=== PATIENT | male | born 1945 | race African-American/Black ===

== ENCOUNTER 2019-07-01 07:24 | Outpatient (CLI) | payer OTHER, SELFPAY ==
--- NOTE | ~2019-07-01 | XR_ITS ---
EXAMINATION: XR abdomen/kub 1V DATE: 07/01/2019 07:44 INDICATION: Left ureteral stone. TECHNIQUE: A supine view of the abdomen was obtained. COMPARISON: CT abdomen and pelvis 06/24/2019 FINDINGS: There are no dilated loops of bowel. There are stones in the bladder measuring up to 14 mm. There is a phlebolith in left pelvis. IMPRESSION: 1. Bladder stones. Reviewed, dictated and finalized at location A. ITE CONTROL SERVICER IMPRESSION: 1. Bladder stones.
== END 2019-07-01 07:25 | disposition home or self-care (01) ==
PROVIDERS: Visit Provider Urology
DX: N21.0 Calculus in bladder (principal)
CPT/HCPCS: 74018

== ENCOUNTER 2019-07-11 16:05 | Outpatient (CLI) | payer OTHER, SELFPAY ==
--- NOTE | ~2019-07-11 | CT_ITS ---
EXAMINATION: CT abdomen pelvis wo con DATE: 07/11/2019 16:57 INDICATION: Left ureteral stone TECHNIQUE: Computed tomography (CT) of the abdomen and pelvis was performed without intravenous contr ast. The dose-length product (DLP) was 222.74 mGy-cm. Automated exposure control and iterative recons truction technique were employed. COMPARISON: 06/24/2019 FINDINGS: Minimal dependent atelectasis is present in the lung bases. The heart size is normal. Punct ate calcifications in otherwise normal appearing liver and spleen likely represent healed granulomato us disease. The gallbladder is surgically absent. The pancreas and adrenal glands are normal. There h as been interval passage or treatment of the previously described left proximal ureteral stone. Left perinephric fat stranding has resolved. There is a 2 mm nonobstructing stone of the right kidney lowe r pole. There are multiple stones in the bladder. No pathologically enlarged abdominal or pelvic lymp h nodes are identified. There is no free intraperitoneal gas or evidence of bowel obstruction. Coloni c diverticulosis is present without evidence of diverticulitis. The appendix is normal. A moderate vo lume of colonic stool is present. IMPRESSION: 1. Interval treatment or passage of the previously described left proximal ureteral stone. 2. Multiple bladder stones. 3. Nonobstructing stone of the right kidney lower pole. Reviewed, dictated and finalized at location A. ING MACHINE OPERATOR IMPRESSION: 1. Interval treatment or passage of the previously described left proximal uret eral stone. 2. Multiple bladder stones. 3. Nonobstructing stone of the right kidney lower pole.
--- NOTE | ~2019-07-11 | XR_ITS ---
EXAMINATION: XR abdomen/kub 1V INDICATION: Left ureteral stone TECHNIQUE: Supine views of the abdomen were obtained on 2 radiographs. COMPARISON: 07/01/2019; CT, 06/24/[address] from today FINDINGS: There are multiple stones in the bladder. A phlebolith is noted in the left pelvis. Cholecy stectomy clips are present in the right upper quadrant. A moderate volume of colonic stool is present . The bowel gas pattern is normal. IMPRESSION: 1. Multiple bladder stones without additional urinary tract calculi seen. Reviewed, dictated and finalized at location A. EN TESTER
== END 2019-07-11 16:06 | disposition home or self-care (01) ==
PROVIDERS: Visit Provider Urology
DX: N21.0 Calculus in bladder (principal); N20.0 Calculus of kidney
CPT/HCPCS: 74018; 74176

== ENCOUNTER 2019-07-24 08:06 | Outpatient (CLI) | payer OTHER, SELFPAY | END 2019-07-24 08:07 | disposition home or self-care (01) | PROVIDERS: PCP Internal Medicine Infectious Disease; Visit Provider Urology | DX: Z01.812 Encounter for preprocedural laboratory examination (principal); N21.0 Calculus in bladder | CPT/HCPCS: 87086; 87088 ==

== ENCOUNTER 2019-07-30 00:38 | Day surgery (SDC) | payer OTHER, SELFPAY ==
[2019-07-23 13:06] VITALS: BMI 29.5
[2019-07-30] VITALS (11 sets, daily range): BP systolic 118–145; BP diastolic 76–94; PULSE 61–83; RESP 12–16; TEMP 36.6–36.8; O2SAT 96–100; BMI 29.5
--- NOTE | 2019-07-30 06:43 | P.PNAN_ITS ---
Anes - Initial Pre Proc Eval Procedure: Operation Date: 07/30/19 07:30 Proposed Procedures p Cystoscopy, Removal Of Bladder Stones - Chava Elias MD s Holmium Laser Procedure - Chava Elias MD Date/Time: 07/30/19 06:43 Surgeon: Chava Elias MD Pre Op Diagnosis: Bladder Stone Patient Data Age: 74 Gender: M Height: 1.75 m Weight: 90.72 kg Allergies Allergy/AdvReac Type Severity Reaction Status Date / Time No Known Allergies Allergy Verified 07/23/19 13:05 Home Medications Medication Instructions Recorded Confirmed Type hydrocodone-acetaminophen 1 tablet PO Q4H PRN #12 tablet 06/24/19 07/23/19 Rx ondansetron 4 mg PO Q6H PRN #10 tablet 06/24/19 07/23/19 Rx tamsulosin [Flomax] 0.4 mg PO DAILY #5 cap 06/24/19 07/23/19 Rx Patient hx anesthesia problems: none Family hx anesthesia problems: none [facility] Past Medical History Medical History (Updated 07/30/19 @ 06:44 by Mendez Jalloh MD) Kidney stones ANTHONY (obstructive sleep apnea) Social History Social History (Updated 06/24/19 @ 03:21 by John Yousif DO) Social History: Denies tobacco use Gender identity (if verbalized by the patient): Male Anes - Eval Final PreProcedure Day of Procedure 07/30/19 06:43 Patient weight: overweight Heart: regular rate and rhythm Lungs: clear to auscultation and normal air movement Airway: Mallampati scale class II Neurological: alert and oriented Last oral intake: >/= 8 hours ASA classification: II Emergent: no Anesthetic plan: proceed Anesthesia type and monitoring: general LMA Informed Consent: The patient's anesthetic plan and its attendant risks and benefits were discussed with the patient/family/POA. Questions were solicited and answers provided to the satisfaction of the patient/family/POA.
--- NOTE | 2019-07-30 06:46 | ECG_ITS ---
Measurements Intervals [place] Rate: 64 P: 40 [place]: 177 QRS: 3 QRSD: 86 T: 47 QT: 412 QTc: 427 Interpretive Statements SINUS RHYTHM BORDERLINE T WAVE ABNORMALITY- LATERAL LEADS BORDERLINE ECG Electronically Signed On 07-30-2019 8:52:05 SHALE MINER BLASTING by Erick Faulkner D.O.
[2019-07-30] MEDS: LACTATED RINGERS 1,000 ML 30 ML IV CONT ×2 (06:50→10:43)
--- NOTE | 2019-07-30 06:52 | PM.IMHP ---
H&P: HPI History of Present Illness Chief complaint: Bladder Stone Narrative: Larry Mcelroy is a 74 year old male found to have bladder calculi. Presents today for cystoscopy with holmium laser of stones and stone extraction. Review of Systems Review of Systems: All systems reviewed & are unremarkable except as noted in HPI and below PMFSH Past Medical History Medical History Kidney stones ANTHONY (obstructive sleep apnea) Social History Social History Social History: Denies tobacco use Gender identity (if verbalized by the patient): Male Meds Home Medications and Allergies Home Medications Medication Instructions Recorded Confirmed Type hydrocodone-acetaminophen 1 tablet PO Q4H PRN #12 tablet 06/24/19 07/23/19 Rx ondansetron 4 mg PO Q6H PRN #10 tablet 06/24/19 07/23/19 Rx tamsulosin [Flomax] 0.4 mg PO DAILY #5 cap 06/24/19 07/23/19 Rx Allergies Allergy/AdvReac Type Severity Reaction Status Date / Time No Known Allergies Allergy Verified 07/23/19 13:05 Exam Const: General: no acute distress HENMT: General nose exam: Normal nares present Eyes: General: appearance normal, both eyes and all related structures Resp: Effort & Inspection: normal respiratory effort Cardio: Rate: regular rate Rhythm: regular rhythm Assessment and Plan Assessment and plan (1) Bladder calculi: Code(s): N21.0 - Calculus in bladder Status: Acute Assessment and Plan: cystoscopy with holmium laser of bladder calculi.
[2019-07-30] MEDS: ceFAZolin 2 GM/D5W 50 ML 2 GM/50 ML BAG IVPB (07:24)
--- NOTE | 2019-07-30 07:41 | SUR.PREOP ---
cardiology arrived for EKG at 0650
[2019-07-30] MEDS: LIDOCAINE HCL 2% GEL UROJET 10 ML PKG MUCOUS MEM (07:43)
--- NOTE | 2019-07-30 08:06 | P.OP_ITS ---
Procedure Note - Detailed Date of procedure: 07/30/19 Pre-op diagnosis: Bladder Stone Multiple bladder stones-approximately 7 of them. Largest measuring 1 cm Post-op diagnosis: same Procedure performed: Cystoscopy with holmium laser of bladder calculi, bladder calculi extraction, fulguration of bladder neck. Description of procedure: Patient is taken to the operative suite and correctly identified. Once general anesthesia was obtained he was placed in a dorsal lithotomy position and prepped and draped in the usual sterile fashion. Twenty- two Turkish scope was inserted in the bladder in direct vision. He has an extremely enlarged prostate obstructive in nature with a median lobe. Upon entering the bladder approximately 7-8 stones are seen. The largest measures approximately 1 cm. We retrieve the smaller stones through the scope. Larger stone required holmium laser. The stones were then fragmented into multiple pieces and the fragments extracted. He did have some oozing at the bladder neck area at approximately the 4 and 5 o'clock position. This was fulgurated using a Bugbee electrode. There were no tumors noted. Given the size of the prostate with a slight oozing we placed an [address] It was inflated with 15 cc of sterile water. This is connected to continuous bladder irrigation. Will try and wean that often recovery room and discharged home with Mccord catheter. Will remove Mccord in the morning. Anesthesia: GLMA Surgeon: Chava Elias MD Drains: Yes Packing: No Pathology: yes Complications: No immediate complications Condition: stable Disposition: PACU
--- NOTE | 2019-07-30 09:15 | SUR.PHASEI ---
0910 FAMILY UPDATED IN THE WAITING ROOM.
== END 2019-07-30 11:14 | disposition home or self-care (01) ==
PROVIDERS: PCP Internal Medicine Infectious Disease; Visit Provider Urology
PROC: 0TCB8ZZ Extirpation of Matter from Bladder, Via Natural or Artificial Opening Endoscopic (ICD-10-PCS; CPT 52352; principal; 2019-07-30 07:30)
PROC: (CPT 52317; 2019-07-30 07:30)
DX: N21.0 Calculus in bladder (principal); G47.33 Obstructive sleep apnea (adult) (pediatric)
CPT/HCPCS: 52317; 52214; 82365; 88300; 93005; A9270; J0690; J1100; J2370; J2405; J2704; J3010; J7120

== ENCOUNTER 2020-09-20 16:39 | Inpatient (IN) | payer MEDICARE, OTHER, SELFPAY ==
--- NOTE | ~2020-09-20 | CT_ITS ---
EXAMINATION: CT abdomen pelvis wo con DATE: 09/20/2020 17:59 INDICATION: Rule out kidney stone. Flank pain. TECHNIQUE: Computed tomography (CT) of the abdomen and pelvis was performed without intravenous contr ast. The dose-length product was 212.21 mGy-cm. Automated exposure control and iterative reconstructi on technique were employed. COMPARISON: CT dated 07/11/2019. FINDINGS: There are dilated small bowel loops with possible transition in the left midabdomen. The di stal small bowel is decompressed. Findings compatible with partial small bowel obstruction. Enlarged prostate gland. There are punctate nonobstructing bilateral renal stones. No ureteral stones or hydro nephrosis. Colonic diverticulosis without evidence for diverticulitis. Lung bases unremarkable. The liver, spleen, pancreas, adrenal glands are unremarkable. Status post ch olecystectomy. IMPRESSION: 1. Small bowel obstruction. 2: Small nonobstructing bilateral renal stones. Reviewed, dictated and finalized at location A.
--- NOTE | ~2020-09-20 | XR_ITS ---
EXAMINATION: XR UGI water soluble w sbs EXAM DATE: 09/21/2020 11:54 INDICATION: Small bowel obstruction. TECHNIQUE: Lug Breaker And Wire Puller radiograph was acquired. Limited water-soluble upper GI examination and small bowel series was performed by radiologist Frederic Shay M.D. Pulsed dose reduction fluoroscopy was used with fluoroscopic time of 0.1. The DAP for this procedure was 46 Gycm2. A total of 17 images obtained f or the exam. Correlation is made to CT abdomen 09/20/2020. FINDINGS: Contrast was injected through nasogastric tube confirmed in position on bridge toll collector image. The st omach has a normal appearance without evidence of mass lesion, ulceration or filling defect. There i s normal rugal fold pattern. The duodenum and duodenal sweep are normal in appearance. Ileal and jejunal fold patterns are normal. Mildly dilated ileum, probably low-grade, partial small b owel obstruction. There is no small bowel wall thickening or mass effect displacing small bowel. The re are no intraluminal filling defects identified. Contrast reached the colon 2 hours. IMPRESSION: Mildly dilated ileum with transit time of 2 hours. Probably low-grade, partial obstructio n. Reviewed, dictated and finalized at location A. IMPRESSION: Mildly dilated ileum with transit time of 2 hours. Probably low-gra de, partial obstruction.
--- NOTE | ~2020-09-20 | XR_ITS ---
XR abdomen NG/feed tube insert INDICATION: Evaluate NG tube position. TECHNIQUE: Limited KUB perform for evaluating NG tube . COMPARISON: 07/11/2019 FINDINGS: NG tube tip in the stomach. Visualized bowel gas pattern is nonspecific.There are cholecys tectomy clips. IMPRESSION: 1: NG tube tip in the stomach. Reviewed, dictated and finalized at location A.
[2020-09-20 17:44] VITALS: BP 122/100; PULSE 72; RESP 16; TEMP 36.2; O2SAT 100
--- NOTE | 2020-09-20 18:40 | ED.GENADULT ---
HPI - General Adult General Chief complaint: Abdominal Pain Stated complaint: left flank pain Time Seen by Provider: 09/20/20 17:49 Source: patient Mode of arrival: ambulatory Limitations: no limitations History of Present Illness HPI narrative: Patient presents for evaluation of abdominal pain since 1000 this morning. He indicates the pain radiates from his left flank into his suprapubic region, ranging from 2-8 out of 10 in severity. He has had similar pain in the past with kidney stones. He had a CT abdomen pelvis in June 2019 that showed multiple bladder stones. He underwent cystoscopy with extraction of bladder calculi per Dr. Elias. Largest stone was 1 cm in size. He had prostate enlargement noted at that time. He denies any fever, chills, urinary symptoms. Reports some fecal urgency and had 2 bowel movements earlier today, both of which were soft. Normal bowel pattern is once every 3 days. He has experienced some nausea with one episode of vomiting. Surgical history positive for cholecystectomy, and umbilical/inguinal hernia repairs in addition to cystoscopy previously mentioned. He did eat cereal at approximately 0800 this morning. States he has had multiple colonoscopies in the past due to family history of colon cancer. Last colonoscopy was within the last 5 years and was normal per his reports. Related Data Home Medications Medication Instructions Recorded Confirmed No Home Medications 09/20/20 09/20/20 Allergies Allergy/AdvReac Type Severity Reaction Status Date / Time No Known Allergies Allergy Verified 09/20/20 17:52 Review of Systems Review of Systems: Narrative: CONSTITUTIONAL: Denies fever, chills, or sweats. EYES: Denies visual changes, redness, or discharge. ENT: Denies rhinorrhea, congestion, sore throat, or otalgia. CARDIOVASCULAR: Denies chest pain, palpitations, or edema. RESPIRATORY: Denies cough or dyspnea. GASTROINTESTINAL: Reports abdominal pain, nausea and vomiting. Denies diarrhea. GENITOURINARY: Denies dysuria or hematuria. SKIN: Denies rash or itching. MUSCULOSKELETAL: Denies back pain, joint pain, or myalgia. NEUROLOGIC: Denies headache, numbness, dizziness, or weakness. PSYCHIATRIC: Denies anxiety or depression. [facility] Past Medical History Medical History (Updated 09/20/20 @ 19:51 by Alexis Porter, [facility], ) Kidney stones ANTHONY (obstructive sleep apnea) Surgical History Surgical History History of cholecystectomy History of hernia repair Social History Social History Social History: Denies tobacco use Living arrangements: with family Additional occupation/education comments: physician Gender identity (if verbalized by the patient): Male Sexual Orientation (if Verbalized by the Patient): Straight or Heterosexual Spiritual care concerns: No Exam Narrative: Exam Narrative: GENERAL: Well-appearing, well-nourished, and in no acute distress. HEAD: Normocephalic, atraumatic. EYES: PERRLA and EOMI. ENT: Nares clear, no rhinorrhea or epistaxis. Mucous membranes moist. Oropharynx without tonsillar hypertrophy exudate or other lesions. Bilateral TMs pearly rogers nonbulging NECK: Supple. No adenopathy or masses. No carotid bruits or JVD CHEST: Clear to auscultation. No respiratory distress. No wheezes rales or rhonchi HEART: Regular rate and rhythm. No murmur heard. Normal peripheral pulses. ABDOMEN: Soft. Tender in suprapubic region. No CVA tenderness. No rebound or guarding. EXTREMITIES: Normal range of motion. No edema. SKIN: Warm, dry, no rash. NEURO: No focal deficits. Alert and oriented x3. PSYCH: Normal mood and affect. Course Course Emergency Course: This is a 75-year-old male who presents with abdominal pain since 10:00 this morning. Initial consideration was for kidney stone as current pain is consistent with the p
[2020-09-20 18:43] VITALS: BP 138/94; PULSE 64; RESP 14; O2SAT 100
[2020-09-20] MEDS: ONDANSETRON INJ 4 MG/2 ML VIAL IV PUSH (18:50)
[2020-09-20] MEDS: SODIUM CHLORIDE 0.9% IV 1,000 ML 100 ML IV CONT (18:50)
[2020-09-20] MEDS: MORPHINE SULFATE (*CRX) 2 MG/ML INJ IV PUSH (18:50)
[2020-09-20 19:00] VITALS: BP 146/95; PULSE 66; RESP 16; O2SAT 98
[2020-09-20 19:15] LABS: Basophils Percent Auto 0.3 % (0.2-1.2); Eosinophils Absolute Auto 0.1 K/mm3 (0-0.3); Eosinophils Percent Auto 2.2 % (0-4.4); Hematocrit 47.5 % (42.0-52.0); Hemoglobin 15.3 g/dL (14.0-18.0); Immature Granulocyte Absolute 0.03 K/mm3 (0.00-0.031); Immature Granulocyte Percent A 0.5 % (0-0.5); Lymphocytes Absolute Auto 1.66 K/mm3 (0.9-3.2); Lymphocytes Percent Auto 27.5 % (18.3-44.2); Mean Corpuscular HGB Conc 32.2 g/dl (32-36); Mean Corpuscular Hemoglobin 29.4 pg (26-34); Mean Corpuscular Volume 91.2 fl (80-100); Mean Platelet Volume 10.7 fl (7.4-10.4); Monocytes Absolute Auto 0.4 K/mm3 (0.1-0.6); Monocytes Percent Auto 6.8 % (2.6-8.5); Neutrophils Absolute Auto 3.8 K/mm3 (1.3-6.7); Neutrophils Percent Auto 62.7 % (45.5-73.1); Platelet Count Result 179 k/mm3 (150-375); Red Blood Count 5.21 M/mm3 (4.6-6.20); Red Cell Distribution Width 15.3 % (11.5-14.5)
[2020-09-20 19:27] LABS: Anion Gap 5 mmol/L (8-16); Blood Urea Nitrogen 18 mg/dL (9-20); Calcium 9.1 mg/dL (8.4-10.2); Carbon Dioxide 31 mmol/L (22-30); Chloride 105 mmol/L (98-107); Estimated CRCL calculation 59 ml/min; Estimated Glomerular Filt Rate > 60; Glucose 115 mg/dL (75-110); Potassium 4.2 mmol/L (3.4-5.0); Sodium 141 mmol/L (137-145)
[2020-09-20 19:28] LABS: Alanine Aminotransferase 29 U/L (4-50); Albumin Level 4.6 g/dL (3.5-5.1); Alkaline Phosphatase 85 U/L (38-126); Aspartate Amino Transferase 33 U/L (17-59); Bilirubin,Total 0.9 mg/dL (0.2-1.3); Lipase 63 U/L (23-300)
[2020-09-20 19:34] LABS: Prothrombin Time 13.6 Seconds (11.1-14.7)
[2020-09-20 19:35] LABS: Partial Thromboplastin Time 37.7 SECONDS (22.3-36.8)
--- NOTE | 2020-09-20 19:50 | PC.NURSE ---
DR TERRELL HOSPITALIST AT BEDSIDE FOR EVAL.
[2020-09-20 20:00] VITALS: BP 150/85; PULSE 81; RESP 16; O2SAT 97
--- NOTE | 2020-09-20 20:22 | PM.IMHP ---
H&P: HPI History of Present Illness Date/Time: 09/20/20 20:22 Chief Complaint: Abdominal pain++ Narrative: This is a pleasant 75 year old male with known history of previous renal stones x5 who presented to the hospital today with a complaint of left flank and LLQ abdominal pain that started at 1 am. The patient believed that he had another renal stone as his pain radiated towards his pelvis and was associated with an urge to defecate. Associated symptoms included nausea and nonbloody vomiting. The patient denies any fever, chills, cough, chest pain, dysuria, or hematuria. The patient had a couple of bowel movements today but then had the urge to defecate in the late afternoon although he could not have a bowel movement. The patient does believe that his abdomen is distended. The patient has had a cholecytectomy, umbilical hernia repair, and bilateral inguinal hernia repairs. CT abd/pelvis was obtained which demonstrated a partial bowel obstruction. The patient has no previous history of bowel obstructions. His last colonoscopy was about 5 years ago and was normal. General surgery was consulted by ER provider. We were asked to admit the patient to the hospital for further care. Review of Systems Review of Systems: All systems reviewed & are unremarkable except as noted in HPI and below PMFSH Past Medical History Medical History Kidney stones ANTHONY (obstructive sleep apnea) Surgical History Surgical History History of cholecystectomy History of hernia repair Social History Social History Social History: Denies tobacco use Smoking status: Never smoker Alcohol intake: never Substance use: never Living arrangements: with family Additional occupation/education comments: physician Gender identity (if verbalized by the patient): Male Sexual Orientation (if Verbalized by the Patient): Straight or Heterosexual Spiritual care concerns: No Comments Family medical history is reviewed and noncontributory. Meds Home Medications and Allergies Home Medications Medication Instructions Recorded Confirmed Type No Home Medications 09/20/20 09/20/20 History Allergies Allergy/AdvReac Type Severity Reaction Status Date / Time No Known Allergies Allergy Verified 09/20/20 17:52 Vital Signs Vital Signs - 24 hr 09/20/20 17:44 09/20/20 18:43 Temperature 36.2 C L Pulse Rate 72 64 Respiratory Rate 16 14 Blood Pressure 122/100 H 138/94 H Pulse Oximetry 100 100 Exam Const: General: cooperative, alert and awake Nutritional Appearance: well nourished Orientation/consciousness: patient oriented x3 HENMT: Head: normal to inspection General nose exam: Normal external nose present Face and sinus: normal facial exam Mouth: Yes Normal oral and palatal mucosa present and Yes oropharynx normal Eyes: Pupils: Equal, round and reactive pupils present EOM: EOMs intact bilaterally Neck: Neck: supple and no JVD Thyroid: thyroid normal Lymphatic: lymphadenopathy not noted Resp: Effort & Inspection: normal respiratory effort Auscultation: clear to auscultation bilaterally Cardio: Rate: regular rate Rhythm: regular rhythm Heart sounds: no murmurs GI: Inspection: distended GI Palp: Yes abdominal tenderness (Diffuse w/ palpation++ ), No Guarding due to palpation present (GI) and No Rigid due to palpation Auscultation: Hypoactive bowel sounds present Rectal Exam: deferred Skin: General skin exam: normal color and no rashes or lesions noted Neuro: General: patient oriented x3 Cranial nerves: Yes CN's II-XII intact bilaterally and Yes Equal, round and reactive pupils present Speech: normal speech Motor exam (neuro): 5/5 motor strength present throughout Sensory Exam: normal sensation Extrem: General: normal to inspection and no jason
[2020-09-20 20:43] LABS: Add Urine Microscopic? YES; Appearance Urine Cloudy (Clear); Bacteria Urine Trace /hpf; Bilirubin Urine Negative (Negative); Blood Urine Negative (Negative); Color Urine Yellow (Yellow); Glucose Urine UA Negative (Negative); Ketones Urine Negative (Negative); Leukocyte Esterase Ur Negative LEU/UL (Negative); Mucus Urine Rare /lpf; Nitrate Urine Negative (Negative); Protein Urine 1+ mg/dL (Negative); Specific Grav Ur 1.029 (1.001-1.035); Squamous Epithelial Cell Urine Rare /hpf (Few); WBC Urine 0-3 /hpf
[2020-09-20 21:32] VITALS: BP 130/86; PULSE 86; RESP 16; O2SAT 98
[2020-09-20 22:30] VITALS: BP 106/82; PULSE 80; RESP 20; TEMP 36.6; O2SAT 98; BMI 29.9
[2020-09-20] MEDS: PHENOL/SOD PHENO SPRAY CHERRY (*BKC) 1 SPRAY MUCOUS MEM (22:35)
--- NOTE | 2020-09-20 22:36 | ADMGEN ---
This patient, Larry Mcelroy, was admitted to Medical Room 244-. Patient/family oriented to hospital policies and general routines including ID bracelet, bed and alarms, visiting hours, pain management, procedures, bathroom and other care routines, personal items, smoking policy, room service/diet, and visiting hours. Information on how to activate the Rapid Response Team has been discussed. Patient/Family are encouraged to report perceived risks to care and to ask questions if they do not understand what they are told or what they should do.
[2020-09-21] VITALS (7 sets, daily range): BP systolic 121–153; BP diastolic 74–92; PULSE 62–78; RESP 16–22; TEMP 36.3–36.8; O2SAT 96–99
[2020-09-21] MEDS: SODIUM CHLORIDE 0.9% IV 1,000 ML 100 ML IV CONT ×2 (01:56→12:45)
[2020-09-21] MEDS: IBUPROFEN IV 400 MG in SODIUM CHLORIDE 0.9% IV 100 ML 200 MG IVPB ×2 (02:11→09:17)
[2020-09-21 05:40] LABS: Basophils Percent Auto 0.3 % (0.2-1.2); Eosinophils Absolute Auto 0.1 K/mm3 (0-0.3); Eosinophils Percent Auto 1.4 % (0-4.4); Hematocrit 39.8 % (42.0-52.0); Immature Granulocyte Absolute 0.03 K/mm3 (0.00-0.031); Immature Granulocyte Percent A 0.5 % (0-0.5); Lymphocytes Absolute Auto 2.07 K/mm3 (0.9-3.2); Lymphocytes Percent Auto 32.8 % (18.3-44.2); Mean Corpuscular HGB Conc 32.7 g/dl (32-36); Mean Corpuscular Hemoglobin 29.5 pg (26-34); Mean Corpuscular Volume 90.2 fl (80-100); Mean Platelet Volume 10.9 fl (7.4-10.4); Monocytes Absolute Auto 0.5 K/mm3 (0.1-0.6); Monocytes Percent Auto 8.4 % (2.6-8.5); Neutrophils Absolute Auto 3.6 K/mm3 (1.3-6.7); Neutrophils Percent Auto 56.6 % (45.5-73.1); Platelet Count Result 183 k/mm3 (150-375); Red Blood Count 4.41 M/mm3 (4.6-6.20); Red Cell Distribution Width 15.2 % (11.5-14.5); White Blood Count 6.3 K/mm3 (4.5-10.0)
[2020-09-21 05:54] LABS: Anion Gap 3 mmol/L (8-16); Blood Urea Nitrogen 16 mg/dL (9-20); Calcium 7.9 mg/dL (8.4-10.2); Carbon Dioxide 27 mmol/L (22-30); Chloride 110 mmol/L (98-107); Estimated CRCL calculation 67 ml/min; Estimated Glomerular Filt Rate > 60; Glucose 120 mg/dL (75-110); Potassium 3.9 mmol/L (3.4-5.0); Sodium 140 mmol/L (137-145)
[2020-09-21] MEDS: PANTOPRAZOLE SODIUM IV 40 MG VIAL IV PUSH (08:34)
--- NOTE | 2020-09-21 09:24 | PC.NURSE ---
To radiology via stretcher.
--- NOTE | 2020-09-21 11:36 | PM.CNGS ---
Assessment and Plan Assessment and plan (1) Partial small bowel obstruction: Code(s): K56.600 - Partial intestinal obstruction, unspecified as to cause Status: Acute Assessment and Plan: CT scan reviewed and suggests a partial small bowel obstruction. He does have a history of previous abdominal surgeries, but these are not surgeries you would necessarily expect a significant amount of intra-abdominal adhesions. Although, this could still be a cause. After speaking with the patient, he had a large intake of nuts prior to the onset of symptoms, which raises suspicion for this being more related to a food bolus rather than obstruction secondary to adhesions. Either way, NG tube was placed and he was made NPO. After seen by Dr. Vazquez this morning, he was showing some signs of clinical improvement. Gastrografin small bowel follow through was ordered today and showed mildly dilated ileum with transit time of 2 hours to the colon. No high grade small bowel obstruction. He is now moving his bowels and his abdominal exam is benign. I will remove his NG tube and allow full liquids. Will slowly advance his diet and re-examine the patient tomorrow morning. Hopefully, he continues to improve and could potentially be discharged home tomorrow. Thank you for allowing us to see the patient in consultation and we will continue to follow along with you. (2) ANTHONY (obstructive sleep apnea): Code(s): G47.33 - Obstructive sleep apnea (adult) (pediatric) Status: Acute Assessment and Plan: Compliant with CPAP. Continue use while inpatient. Additional Plan I have discussed the patient's case and plan of care with Dr. Vazquez. History of Present Illness Consult details Consult date: 09/21/20 Reason for consult: other (Partial small bowel obstruction) Requesting physician: Alexis Porter, LOG BUYER, Narrative: This is a 75-year-old male with a known history of renal stones, who presented to the emergency department with complaints of left flank and left lower quadrant abdominal pain. He reports eating a large volume of nuts in a sitting on Monday. Monday morning around 10:00, he developed left flank pain that radiated to his pelvis. He also had associated bloating, nausea, vomiting, and the urge to defecate. Prior to his symptoms, his bowels were moving normally. The pain was similar to the pain he has experienced in the past with kidney stones, but states it was consistent pain rather than intermittent. Yesterday, his pain was persistent, therefore he presented to the ER for evaluation. CT scan of the abdomen and pelvis showed dilated small bowel with a possible transition point in the left mid abdomen, suggesting a partial small bowel obstruction. Labs were unremarkable. The patient was admitted to the hospitalist service. An NG tube was placed and he was made NPO. Our service was consulted for the partial small bowel obstruction. The patient is now seen on medical floor. He had a Gastrografin small bowel follow through earlier this morning, and since the study he has had multiple bowel movements. He denies any nausea or abdominal pain at this time. The patients previous abdominal surgeries includes an umbilical hernia repair, bilateral inguinal hernia repair, and laparoscopic cholecystectomy. Denies a history of small bowel obstruction in the past. Review of Systems Review of Systems: All systems reviewed & are unremarkable except as noted in HPI and below Constitutional: Constitutional: Reports as per HPI, Denies chills, Denies fatigue and Denies fever(s) ENT: Reports system reviewed and no additional complaints, except as documented, Reports Normal hearing present and Denies dizziness Cardiovascular: Cardiovascular: Reports no additional cardiovascular complaints, Denies chest pain, Denies leg edema and Denies dyspnea Respiratory: Respiratory: Reports no additional respiratory complaints, Denies cough and Denies dyspnea Gastro
--- NOTE | 2020-09-21 16:48 | PM.IMPN ---
Progress Note: A&P Assessment and Plan (1) Partial small bowel obstruction: Code(s): K56.600 - Partial intestinal obstruction, unspecified as to cause Status: Acute Assessment and Plan: Patient presented with acute onset LLQ abdominal pain. CT demonstrated small bowel obstruction. He was evaluated by general surgery, Dr Vazquez and Rocio AUTO APPRAIS[facility]. NG was placed to low intermittent suction, NPO/bowel rest overnight last night. Upper GI series this morning showed mildly dilated ileum consistent with low-grade partial obstruction. NG removed. He has now had multiple BMs, tolerated full liquids so far without abdominal pain, nausea or vomiting. IV fluids discontinued. Agree that this may have been related to food bolus. Patient consumed a large amount of nuts in one sitting prior to arrival. He now endorses passing many nuts in his BMs. Other contributing etiology could be adhesions subsequent from prior abdominal surgeries: laparoscopic cholecystectomy, umbilical hernia repair, bilateral inguinal hernia repair. Anticipate advance diet in AM, likely discharge tomorrow. Appreciate General Surgery recommendations. 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 He is feeling well after surgery [facility] APPR[facility]IS[facility] removed NG tube this afternoon. He is having no abdominal pain, nausea or vomiting and has tolerated 1 tray of full liquids for lunch. Since his upper GI series this AM, he has passed multiple bowel movements. He describes eating a large amount of nuts yesterday and agrees with surgery that this may caused a food bolus, especially now that he is seeing a lot of nuts in his stool this afternoon. He is hopeful for discharge tomorrow. Review of Systems Review of Systems: All systems reviewed & are unremarkable except as noted in HPI and below Exam Narrative: Exam Narrative: General: Male ambulating independently in the room in no acute distress. HEENT: Normocephalic, EOMI. Cardiovascular: Rate and rhythm are regular. Respiratory: Lungs clear to auscultation bilaterally. Respirations even and non-labored. Tolerating room air. Abdomen: Soft, non-distended, bowel sounds present. Nontender to palpation. Extremities: Peripheral pulses intact. No edema. Neuro: No focal neurological deficits. Speech is clear. Objective Data Vital Signs Vital Signs: Last Vital Signs Temp 97.5 F L 09/21/20 14:00 Pulse 70 09/21/20 14:00 Resp 22 H 09/21/20 14:00 BP 125/75 09/21/20 14:00 Pulse Ox 98 09/21/20 14:00 Intake/Output Intake/Output: Intake & Output 09/18/20 09/19/20 09/20/20 09/21/20 23:59 23:59 23:59 23:59 Intake Total 1000 1408 Output Total 600 Balance 1000 808 Meds/Results Medications: Active Medications Generic Name Dose Route Start Last Admin Trade Name Freq PRN Reason Stop Dose Admin Ibuprofen 400 mg/ Sodium 104 mls @ 200 mls/hr 09/21/20 00:30 09/21/20 09:50 Chloride IVPB Infused Q6H PRN Infusion Pain Rated 4-6 Morphine Sulfate 2 mg 09/20/20 19:44 Morphine Sulfate (*Crx) 4 Mg/Ml Inj IV PUSH Q2H PRN Pain Rated 7-10 Ondansetron HCl 4 mg 09/20/20 19:44 Ondansetron Inj 4 Mg/2 Ml Vial IV PUSH Q4H PRN Nausea Pantoprazole Sodium 40 mg 09/21/20 09:00 09/21/20 08:34 Pantoprazole Sodium Iv 40 Mg Vial IV PUSH 40 mg QAM BROCK Administration Phenol 1 spray 09/20/20 22:13 09/20/20 22:35 Phenol/Sod Pheno [place] Arnold (*Bkc) MUCOUS MEM 1 spray PRN PRN Administration Sore Throat Radiology Results: ITS Impressions Abdomen/Pelvis CT 09/20/20 18:00 IMPRESSION: 1. Small bowel obstruction. 2: Small nonobstructing bilateral renal stones. Abdomen X-Ray 09/20/20 20:40 IMPRESSION: 1: NG tube tip in the stomach. Upper GI Series 09/21/20 11:56 IMPRESSION: Mildly dilated ileum with transit time of 2 hours. Probabl
--- NOTE | 2020-09-21 22:02 | PCRCNOTE ---
Asked pt if he would like a cpap machine to wear he refused at this time due to covid. I explained he could have his family bring his up too if he would like.
[2020-09-22 05:32] LABS: Basophils Percent Auto 0.4 % (0.2-1.2); Eosinophils Absolute Auto 0.2 K/mm3 (0-0.3); Eosinophils Percent Auto 4.2 % (0-4.4); Hematocrit 40.2 % (42.0-52.0); Hemoglobin 12.9 g/dL (14.0-18.0); Immature Granulocyte Absolute 0.04 K/mm3 (0.00-0.031); Immature Granulocyte Percent A 0.8 % (0-0.5); Lymphocytes Absolute Auto 2.03 K/mm3 (0.9-3.2); Lymphocytes Percent Auto 40.4 % (18.3-44.2); Mean Corpuscular HGB Conc 32.1 g/dl (32-36); Mean Corpuscular Hemoglobin 29.7 pg (26-34); Mean Corpuscular Volume 92.4 fl (80-100); Mean Platelet Volume 10.6 fl (7.4-10.4); Monocytes Absolute Auto 0.6 K/mm3 (0.1-0.6); Neutrophils Absolute Auto 2.1 K/mm3 (1.3-6.7); Neutrophils Percent Auto 42.2 % (45.5-73.1); Platelet Count Result 161 k/mm3 (150-375); Red Blood Count 4.35 M/mm3 (4.6-6.20); Red Cell Distribution Width 15.5 % (11.5-14.5)
[2020-09-22 05:41] LABS: Potassium 3.9 mmol/L (3.4-5.0)
[2020-09-22 05:42] LABS: Anion Gap 0 mmol/L (8-16); Blood Urea Nitrogen 13 mg/dL (9-20); Calcium 7.9 mg/dL (8.4-10.2); Carbon Dioxide 30 mmol/L (22-30); Chloride 110 mmol/L (98-107); Estimated CRCL calculation 67 ml/min; Estimated Glomerular Filt Rate > 60; Glucose 92 mg/dL (75-110); Magnesium 1.9 mg/dL (1.6-2.3); Sodium 140 mmol/L (137-145)
[2020-09-22 06:00] VITALS: BP 133/83; PULSE 62; RESP 16; TEMP 36.4; O2SAT 98
[2020-09-22 06:54] VITALS: O2SAT 93
[2020-09-22 08:00] VITALS: BP 124/75; PULSE 64; RESP 16; TEMP 35.8; O2SAT 97
--- NOTE | 2020-09-22 09:23 | PM.PNGS ---
Progress Note: A&P Assessment and Plan (1) Partial small bowel obstruction: Code(s): K56.600 - Partial intestinal obstruction, unspecified as to cause Status: Acute Assessment and Plan: appears to be resolved. Patient can be discharged this morning. Advised to keep high residue, high-fiber foods such as knots to moderate intake. I suspect the high intake of nuts was the cause of his obstruction. Okay to discharge from my standpoint. No surgical follow-up needed. Subjective Subjective Date/Time Seen: 09/22/20 09:23 Patient reports: no new complaints, feels better, pain is less ( No abdominal pain, no nausea, feels back to normal) and bowel movement Review of Systems Review of Systems: All systems reviewed & are unremarkable except as noted in HPI and below Constitutional: Constitutional: Denies headache(s) Gastrointestinal: Gastrointestinal: Reports as per HPI Neurologic: Denies confusion and Denies headache(s) Exam Const: General: comfortable and no acute distress; No confusion Orientation/consciousness: patient oriented x3 and No confusion Neuro: General: patient oriented x3, no focal motor deficits and No confusion Psych: Affect: normal affect Insight: Good insight present (Psych) Judgement: Good judgement present (Psych) Objective Data Vital Signs Vital Signs: Vital Signs - 24 hr 09/21/20 12:12 09/21/20 14:00 09/21/20 18:00 Temperature 36.3 C L 36.4 C L 36.6 C Pulse Rate 65 70 73 Respiratory Rate 16 22 H 16 Blood Pressure 153/92 H 125/75 132/74 Pulse Oximetry 98 98 98 09/21/20 22:00 09/22/20 06:00 09/22/20 06:54 Temperature 36.7 C 36.4 C Pulse Rate 62 62 Respiratory Rate 18 16 Blood Pressure 128/75 133/83 Pulse Oximetry 99 98 93 09/22/20 08:00 Temperature 35.8 C L Pulse Rate 64 Respiratory Rate 16 Blood Pressure 124/75 Pulse Oximetry 97 Intake/Output Intake/Output: Intake & Output 09/19/20 09/20/20 09/21/20 09/22/20 23:59 23:59 23:59 23:59 Intake Total 1000 1758 558 Output Total 600 Balance 1000 1158 558 Meds/Results Medications: Active Medications Generic Name Dose Route Start Last Admin Trade Name Freq PRN Reason Stop Dose Admin Ibuprofen 400 mg/ Sodium 104 mls @ 200 mls/hr 09/21/20 00:30 09/21/20 09:50 Chloride IVPB Infused Q6H PRN Infusion Pain Rated 4-6 Morphine Sulfate 2 mg 09/20/20 19:44 Morphine Sulfate (*Crx) 4 Mg/Ml Inj IV PUSH Q2H PRN Pain Rated 7-10 Ondansetron HCl 4 mg 09/20/20 19:44 Ondansetron Inj 4 Mg/2 Ml Vial IV PUSH Q4H PRN Nausea Pantoprazole Sodium 40 mg 09/21/20 09:00 09/21/20 08:34 Pantoprazole Sodium Iv 40 Mg Vial IV PUSH 40 mg QAM BROCK Administration Phenol 1 spray 09/20/20 22:13 09/20/20 22:35 Phenol/Sod Pheno [place] Arnold (*Bkc) MUCOUS MEM 1 spray PRN PRN Administration Sore Throat Radiology Results: ITS Impressions Abdomen/Pelvis CT 09/20/20 18:00 IMPRESSION: 1. Small bowel obstruction. 2: Small nonobstructing bilateral renal stones. Abdomen X-Ray 09/20/20 20:40 IMPRESSION: 1: NG tube tip in the stomach. Upper GI Series 09/21/20 11:56 IMPRESSION: Mildly dilated ileum with transit time of 2 hours. Probably low-grade, partial obstruction. Labs Labs: Laboratory Results - last 24 hr 09/22/20 09/22/20 05:02 05:02 WBC 5.0 RBC 4.35 L Hgb 12.9 L Hct 40.2 L MCV 92.4 MCH 29.7 MCHC 32.1 RDW 15.5 H Plt Count 161 MPV 10.6 H Immature Gran % (Auto) 0.8 H Neut % (Auto) 42.2 L Lymph % (Auto) 40.4 [place] % (Auto) 12.0 H Eos % (Auto) 4.2 Baso % (Auto) 0.4 Lymph # (Auto) 2.03 [place] # (Auto) 0.6 Eos # (Auto) 0.2 Baso # (Auto) 0.0 Abs Immat Gran (auto) 0.04 H Absolute Neuts (auto) 2.1 Absolute Nucleated RBC 0.0 Nucleated RBC % 0.0 Sodium 140 Potassium 3.9 Chloride 110 H Carbon Dioxide 30 Anion Gap 0 L BUN 13 Creati
--- NOTE | 2020-09-22 09:31 | PM.DS ---
DS: Admitting Diagnosis Admitting Diagnosis Admitting Diagnosis: SBO DS: Discharge Diagnosis Discharge Diagnosis (1) Partial small bowel obstruction: Code(s): K56.600 - Partial intestinal obstruction, unspecified as to cause Status: Acute DS: Summary Hospital Course Hospital Course: Patient is a 75-year-old male who is in good health who presented emergency room for abdominal pain radiating to his flank that was associated with nausea and 1 episode of vomiting. He had a history of cholecystectomy, hernias, colonoscopy in the last 5 years, it and kidney stones. His vitals were stable in the ER. CBC and BMP were within normal limits. Liver enzymes normal. CT of the abdomen pelvis showed small-bowel obstruction. Patient states he had a big dose of peanuts the day prior. He was admitted to the hospitalist service and NG tube was placed. This improved his symptoms and he underwent an upper GI follow-through which showed possible partial obstruction. The day of discharge the patient was doing well and tolerating a diet. He felt back to his baseline and the pain had resolved. He was educated about decreasing the amount of high-fiber food and watching for similar symptoms. He was educated about the worrisome signs and symptoms to come back to emergency room for and was discharged stable condition to follow-up with his primary care physician. Status at Discharge Functional status at discharge: independent ambulation Overall status at discharge: patient is back to baseline Time Spent with Patient Time attestation: Total time spent providing and/or coordinating discharge services:32 min Time spent: Greater than 30 minutes Exam Narrative: Exam Narrative: General: Well developed well nourished patient in NAD walking around the room HEENT: normocephalic Neck: supple Neuro: Alert and oriented x4 CV:RRR Resp:CTA Abd: Soft, non distended. No pain to palpation. Positive bowel sounds Extremities: No swelling, erythema, or pain to palpation. DS: Data Data Completed and Pending Labs on day of discharge: Labs from last 24 hours 09/22/20 09/22/20 05:02 05:02 WBC 5.0 RBC 4.35 L Hgb 12.9 L Hct 40.2 L MCV 92.4 MCH 29.7 MCHC 32.1 RDW 15.5 H Plt Count 161 MPV 10.6 H Immature Gran % (Auto) 0.8 H Neut % (Auto) 42.2 L Lymph % (Auto) 40.4 [place] % (Auto) 12.0 H Eos % (Auto) 4.2 Baso % (Auto) 0.4 Lymph # (Auto) 2.03 [place] # (Auto) 0.6 Eos # (Auto) 0.2 Baso # (Auto) 0.0 Abs Immat Gran (auto) 0.04 H Absolute Neuts (auto) 2.1 Absolute Nucleated RBC 0.0 Nucleated RBC % 0.0 Sodium 140 Potassium 3.9 Chloride 110 H Carbon Dioxide 30 Anion Gap 0 L BUN 13 Creatinine 0.90 Estim Creat Clear Calc 67 Estimated GFR > 60 Glucose 92 Calcium 7.9 L Magnesium 1.9 Discharge Plan Discharge Attending physician on discharge: Nawaf Cooley Consulting providers: Santhosh Vazquez Discharging Clinician: Hermelinda Garcia Patient Disposition: Home, Self-Care Activity: may shower and as tolerated Diet: regular Discharge Instructions: -follow-up with your primary care physician in 1-2 weeks about this stay -increase your diet as tolerated -worrisome signs and symptoms to come back to emergency room: Chest pain, shortness of breath, progressive significant weakness, worsening abdominal pain, inability to eat or drink, fevers 100.4 or greater, or any other worrisome symptom. Stand Alone Forms: General Discharge Information Follow-up/Referrals: Donna,Luis Cardenas MD [Primary Care Provider] - Keep Reg. Scheduled Appt. Discharge Medications: Continued No Home Medications RF: 0 Date of admission: 09/21/20 08:41 Primary Care Provider: Donna,Luis Cardenas Admitting Provider: Benedict Ramirez Attending physician on admission: Hermelinda Garcia Condition: Improved Quality VTE Prophylaxis VTE prophylaxis: [facility]
[2020-09-22 09:36] VITALS: RESP 16; O2SAT 97
== END 2020-09-22 14:00 | disposition home or self-care (01) | DRG 390 ==
LOC: ANHED 19:53 → ANH2MED 21:01
PROVIDERS: Emergency Medicine; Physician Assistant; Admitting Provider Family Medicine; Emergency Provider Nurse Practitioner; PCP Internal Medicine Infectious Disease; Visit Provider Physician Assistant
DX: K56.600 Partial intestinal obstruction, unspecified as to cause (principal); G47.33 Obstructive sleep apnea (adult) (pediatric); N20.0 Calculus of kidney; Z80.0 Family history of malignant neoplasm of digestive organs
CPT/HCPCS: 36415; 74176; 74240; 74248; 80048; 80076; 81001; 83690; 83735; 85025; 85610; 85730; 96361; 96365; 96374; 96375; 99285; A9270; C9113; G0378; J1741; J2270; J2405; J7030

== ENCOUNTER → 2020-10-31 01:05 | Outpatient (CLI) | payer OTHER, SELFPAY ==
[2020-10-31 19:38] LABS: SARS-CoV-2 RNA PCR Negative
== END ==
PROVIDERS: PCP Internal Medicine Infectious Disease; Visit Provider Internal Medicine Gastroenterology
DX: Z01.812 Encounter for preprocedural laboratory examination (principal); Z20.822 Contact with and (suspected) exposure to COVID-19
CPT/HCPCS: C9803; U0003; U0005

== ENCOUNTER 2020-11-04 01:40 | Day surgery (SDC) | payer OTHER, SELFPAY ==
[2020-10-22 14:04] VITALS: BMI 28.6
[2020-11-04 12:23] VITALS: BP 146/81; PULSE 60; RESP 18; TEMP 35.9; O2SAT 100
[2020-11-04] MEDS: LACTATED RINGERS 1,000 ML 150 ML IV CONT (12:35)
--- NOTE | 2020-11-04 13:12 | P.PNAN_ITS ---
Anes - Initial Pre Proc Eval Procedure: Operation Date: 11/04/20 13:45 Proposed Procedures p Esophagogastroduodenoscopy - Magdiel Ness MD Date/Time: 11/04/20 13:12 Surgeon: Magdiel Ness MD Pre Op Diagnosis: dysphagia Patient Data Age: 75 Gender: M Height: 5 ft 9 in Weight: 87.9 kg Last Vital Signs Temp 96.7 F L 11/04/20 12:23 Pulse 60 11/04/20 12:23 Resp 18 11/04/20 12:23 BP 146/81 H 11/04/20 12:23 Pulse Ox 100 11/04/20 12:23 Allergies Allergy/AdvReac Type Severity Reaction Status Date / Time No Known Allergies Allergy Verified 11/04/20 12:21 Home Medications Medication Instructions Recorded Confirmed Type No Home Medications 11/04/20 11/04/20 History Patient hx anesthesia problems: none Family hx anesthesia problems: none [facility] Past Medical History Medical History Kidney stones ANTHONY (obstructive sleep apnea) Surgical History Surgical History History of cholecystectomy Laparoscopic cholecystectomy History of hernia repair Umbilical hernia repair in 1950s History of inguinal hernia repair Bilateral inguinal hernia repair Family History Family History Other No pertinent family history Social History Social History Social History: Denies tobacco use Smoking status: Never smoker Alcohol intake: never Substance use: never Substance use type: does not use Living arrangements: with family Additional living arrangements comments: With his of 52 yearsDemian 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 Questions were solicited and answers provided to the satisfaction of the patient/family/POA.
--- NOTE | 2020-11-04 13:47 | PM.HPGS ---
History of Present Illness History of Present Illness Consent: Risks, benefits, and alternatives have been discussed and questions answered. Patient agrees to proceed with procedure. Chief complaint: dysphagia Narrative: Larry Mcelroy is a 75 year old male with post-prandial upper abdominal pain, also intermittent dysphagia. 09/16 admitted with SBO treated medically, last EGD about 30 years. He is not using ppi Review of Systems Constitutional: Constitutional: Denies headache(s) and Denies weakness Eyes: Eyes: Denies blurry vision ENT: Reports Normal hearing present, Denies headache(s) and Denies neck pain Cardiovascular: Cardiovascular: Denies chest pain and Denies dyspnea Respiratory: Respiratory: Denies dyspnea Gastrointestinal: Gastrointestinal: Reports no additional gastrointestinal complaints Genitourinary: Genitourinary: Denies dysuria Musculoskeletal: Musculoskeletal: Denies neck pain Integumentary/Breasts: Skin/Breast: Denies dry skin Neurologic: Reports Normal hearing present, Denies headache(s) and Denies weakness Psychiatric: Psychiatric: Denies anxiety Endocrine: Endocrine: Denies change in body appearance Hematologic/Lymphatic: Hematologic/Lymphatic: Denies easy bleeding Allergic/Immunologic: Allergic/Immunologic: Denies urticaria PMFSH Past Medical History Medical History (Updated 11/04/20 @ 13:49 by Magdiel Ness MD) Dysphagia Kidney stones ANTHONY (obstructive sleep apnea) Upper abdominal pain Surgical History Surgical History History of cholecystectomy Laparoscopic cholecystectomy History of hernia repair Umbilical hernia repair in 1950s History of inguinal hernia repair Bilateral inguinal hernia repair Family History Family History Other No pertinent family history Social History Social History Social History: Denies tobacco use Smoking status: Never smoker Alcohol intake: never Substance use: never Substance use type: does not use Living arrangements: with family Additional living arrangements comments: With his of 52 yearsDemian 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 (if verbalized by the patient): Male Spiritual care concerns: No Meds Home Medications and Allergies Home Medications Medication Instructions Recorded Confirmed Type No Home Medications 11/04/20 11/04/20 History Allergies Allergy/AdvReac Type Severity Reaction Status Date / Time No Known Allergies Allergy Verified 11/04/20 12:21 Vital Signs Vital Signs - 24 hr 11/04/20 12:23 Temperature 96.7 F L Pulse Rate 60 Respiratory Rate 18 Blood Pressure 146/81 H Pulse Oximetry 100 Exam Const: General: comfortable and no acute distress HENMT: General nose exam: Normal nares present Eyes: General: appearance normal, both eyes and all related structures Neck: Neck: no JVD Resp: Auscultation: clear to auscultation bilaterally Cardio: Rate: regular rate Rhythm: regular rhythm GI: Inspection: non-distended GI Palp: Yes Soft to palpation Skin: General skin exam: normal color Neuro: General: gait normal Speech: normal speech Extrem: General: normal to inspection Psych: Mental Status: mental status grossly normal Assessment and Plan Assessment and plan (1) Upper abdominal pain: Code(s): R10.10 - Upper abdominal pain, unspecified Status: Acute Assessment and Plan: egd with bx (2) Dysphagia: Code(s): R13.10 - Dysphagia, unspecified Status: Acute (3) Partial small bowel obstruction: Code(s): K56.600 - Partial intestinal obstruction, unspecified as to cause Status: Acute
[2020-11-04 14:03] VITALS: BP 119/63; PULSE 64; RESP 26; O2SAT 96
[2020-11-04 14:12] VITALS: BP 121/88; PULSE 63; RESP 26; O2SAT 100
--- NOTE | 2020-11-04 14:12 | SUR.PHASEII ---
Dr. Page made aware of positive H. Pylori.
[2020-11-04 14:22] VITALS: BP 136/94; PULSE 59; RESP 26; O2SAT 100
== END 2020-11-04 14:42 | disposition home or self-care (01) ==
PROVIDERS: PCP Internal Medicine Infectious Disease; Visit Provider Internal Medicine Gastroenterology
PROC: 0DJ08ZZ Inspection of Upper Intestinal Tract, Via Natural or Artificial Opening Endoscopic (ICD-10-PCS; CPT 43235; principal; 2020-11-04 13:45)
DX: K29.50 Unspecified chronic gastritis without bleeding (principal); B96.81 Helicobacter pylori [H. pylori] as the cause of diseases classified elsewhere; K20.80 Other esophagitis without bleeding; R13.10 Dysphagia, unspecified; G47.33 Obstructive sleep apnea (adult) (pediatric); Z87.19 Personal history of other diseases of the digestive system
CPT/HCPCS: 43239; 87081; 88305; 88342; C9803; J2704; J7120; U0003; U0005